=== PATIENT | female | born 1965 | race Caucasian/White ===

== ENCOUNTER → 2016-12-30 | Outpatient (CLI) | payer OTHER ==
--- NOTE | 2016-12-30 11:01 | MA ---
Screening Digital Mammogram With iCAD Analysis Clinical Indications: Routine screening. Technique: Standard cephalocaudal and mediolateral oblique projections were obtained. This examinatio n was processed by the iCAD computer-aided detection system. Comparison: Baseline study; no previous mammograms have been performed. Breast Density: Type C; Heterogeneously dense. Findings: CAD was reviewed. There are asymmetric loosely clustered microcalcifications in the outer r ight breast. Fewer scattered calcifications are noted on the left. No masses are identified. Impression: Right breast calcifications require further evaluation, BI-RADS 0. Recommendation: Right breast magnification views. [facility] will send a result letter to the patient. Dense breast parenchyma diminishes mammographic sensitivity.
== END ==
LOC: BMCIMAGING 08:50
DX: Z12.31 Encounter for screening mammogram for malignant neoplasm of breast (principal)
CPT/HCPCS: G0202

== ENCOUNTER → 2017-01-14 | Outpatient (CLI) | payer OTHER | LOC: BMCIMAGING 11:12 | PROVIDERS: ATTEND Family Medicine | DX: S69.92XA Unspecified injury of left wrist, hand and finger(s), initial encounter (principal) ==

== ENCOUNTER → 2017-01-15 | Outpatient (CLI) | payer OTHER | LOC: BMCIMAGING 12:47 | DX: R92.0 Mammographic microcalcification found on diagnostic imaging of breast (principal) | CPT/HCPCS: G0206 ==

== ENCOUNTER → 2017-10-08 | Outpatient (CLI) | payer OTHER | LOC: FIMAGING 11:31 | PROVIDERS: ATTEND Family Medicine | DX: R92.0 Mammographic microcalcification found on diagnostic imaging of breast (principal) | CPT/HCPCS: G0206 ==